=== PATIENT | male | born 1985 | race Two or more races ===

== ENCOUNTER 2021-12-25 09:56 | Outpatient (CLI) | payer OTHER ==
[2021-12-25 10:42] VITALS: BP 118/78
--- NOTE | 2021-12-25 10:43 | SLEEP CARE CONSULTATION ---
Information from patient questionnaire entered by Brock Otero. I have reviewed and concur with the information entered by Brock Otero. This document represents the service I personally performed and the decisions made by me, Liana Mccollum MD, [facility]. History of Present Illness Service Date and Time: 12/25/2021 0956 Reason for Visit: New patient (INITIAL ONSET: 11/16/19, ON CPAP) Additional HPI information: I had the pleasure of seeing Mr. Westfall today regarding obstructive sleep apnea- hypopnea. As you know, he is a 36-year-old gentleman who was diagnosed with the sleep-disordered breathing in [place], [place] around 2018. The sleep study report is unavailable. There is a chart note from 2019 mentioning that he had the study a year ago, but the results were not available and the patient was told to follow up with the private sleep clinic. He recalls being told that he quit breathing 25 times an hour. The patient has a CPAP that he is not using because he ran out of supplies. He cannot remember who was his supplier either. He wore a full face mask. He recalls improvement on the treatment. He did not bring his CPAP device or its memory card. The patient tells me that he normally goes to bed around 10 pm, and it takes him approximately 60 minutes to fall asleep. He can recall waking up on the average of 1 time during the night. He has awakened occasionally because of his own snoring, choking, and having to gasp for air. In the morning he usually gets up out of the bed around 6 a.m. feeling refreshed and rested. However, he has a morning headache when not using his CPAP. During the day he complains of feeling sleepy and fatigued. His score on Houston Sleepiness Scale is 12 out of 24. He never has fallen asleep while driving nor has had any accident due to sleepiness. He usually does not take naps during the day. He denies having impaired concentration during the day. 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 Patient is Single and lives in . Family History Family Hx Sleep Apnea: Mother: Snoring, Sleep apnea - Treated Allergies and Home Medications Drug allergies reviewed: Yes Home medication list reviewed: Yes Review of Systems Cardiovascular: reports: high blood pressure Respiratory: denies: shortness of breath, wheeze, sputum production, chronic cough, other Gastrointestinal: denies: heartburn, difficulty swallowing, nausea, vomitting, diarrhea, abdominal pain, other Urinary: denies: incontinence, frequency, urgency, impotence, other Neurological: reports: headaches Psychiatric: denies: Attention Deficit Hyperactivity, anxiety, depression, mood disorder, claustrophobia, other Ear/Nose/Throat: denies: nasal congestion, sinus problems, nose bleeds, dry mouth/throat, hoarseness, injury to nose, tonsillectomy, wisdom teeth removed, other Endocrine: denies: thyroid disease, history of goiter, sluggishness, too hot or cold, excessive thirst, increased appetite, increased urination, unexplained weakness, other Musculoskeletal: denies: joint pain, neck pain, back pain, joint swelling, muscle pain or cramping, mobility problems, other Immunologic: denies: sneezing, rash, itching, allergies to food or environment, other Physical Exam Vital signs obtained and entered by: HARJEET, [employer] Blood Pressure: 118/78 (left arm ) Cuff size: regular Heart Rate: 89 O2 Saturation: 95 Height: 5 ft 11 in Weight: 238 lb Body Mass Index: 33.2 BMI Classification: Obese Mood/affect: normal HEENT: No craniofacial malformation Nostrils: patent to airflow Turbinates: normal Septum: midline Mouth and throat: narrow oropharynx Soft palate: long Hard palate: normal Uvula: normal Uvula visualization: 25% Mallampati Class III Tongue: normal in size Tonsils: 2+ Chin and jaw: normal size and position Neck: normal w/o lymphadenopathy or thyromegaly Heart: regular rate and rhythm Lungs: clear bilaterally Extremities: no edema or clubbing Neurologic: intact Impression and Plan IMPRESSION: 1. Obstructive Sleep Apnea-Hypopnea Syndrome, as previously diagnosed. The severity is the severity is unknown as we do not have any of the records. Therefore, before restarting him on the CPAP therapy, I will order an in-laboratory polysomnography to establish the diagnosis and its severity. Narrow oropharynx and obesity are common predisposing factors for obstructive sleep apnea-hypopnea syndrome. The enlarged tonsils probably play a role. Untreated obstructive sleep apnea can also cause hypertension. I informed the patient of what the sleep studies involve and after some discussion, he agreed to proceed. Plan: 1. Schedule an in-laboratory polysomnography. 2. Avoid long distance driving or when feeling sleepy. 3. Avoid alcohol, sedative and muscle relaxant around bedtime. 4. Attempt to lose weight. 5. Return for follow up after the sleep study. Follow up with Sleep Care in: 1-2 months Plan: in-lab PSG Visit Type: In Office Time Spent with Patient (minutes): 20 Provider Statement: I spent 100% of the Face to Face Visit with the patient with greater than 50% spent counseling the patient and coordination of care.
== END 2021-12-25 09:57 | disposition home or self-care (01) ==
LOC: SC 09:56
PROVIDERS: ATTEND Internal Medicine Pulmonary Disease
DX: G47.33 Obstructive sleep apnea (adult) (pediatric) (principal); E66.9 Obesity, unspecified; Z68.33 Body mass index [BMI] 33.0-33.9, adult
CPT/HCPCS: 99202; 99212

== ENCOUNTER 2022-01-04 20:40 | Outpatient (CLI) | payer OTHER | END 2022-01-04 20:41 | disposition home or self-care (01) | LOC: SC 20:40 | PROVIDERS: ATTEND Internal Medicine Pulmonary Disease | DX: G47.33 Obstructive sleep apnea (adult) (pediatric) (principal) | CPT/HCPCS: 95810 ==

== ENCOUNTER 2022-01-17 08:27 | Outpatient (CLI) | payer OTHER ==
[2022-01-17 09:08] VITALS: BP 113/80
--- NOTE | 2022-01-17 09:08 | SLEEP CARE CONSULTATION ---
Information from patient questionnaire entered by Palomo Staley MA. I have reviewed and concur with the information entered by Palomo Staley MA. This document represents the service I personally performed and the decisions made by , Pattie Lopez ARNP. History of Present Illness Service Date and Time: 01/17/2022 0827 Initial Mcclellan Sleepiness Scale score: 12 Current Mcclellan Sleepiness Scale score: 8 (01/17/2022) Additional HPI information: AMANDA MACIEL returns for follow up and results of the recently performed polysomnography. I explained the pathophysiology behind obstructive sleep apnea. We then spent quite a bit of time discussing different treatment options. For mild obstructive sleep apnea, surgery and oral appliance are alternatives to nasal CPAP therapy but in moderate or severe cases, nasal CPAP is the most effective and reliable treatment. Because apnea is primarily in supine position, then positional management therapy could be effective. Methods discussed such as positioning with pillows to prevent supine sleep. I reviewed the impact of weight changes on sleep apnea and strongly recommended losing weight. After some discussion, the patient opted to go with the nasal CPAP therapy. Nasal autoCPAP set at 4-15 cmH20 will be ordered with rationale explained. A manual titration study will be ordered if unable to find optimal pressure with office adjustments. I explained how CPAP machine works and what to expect when using the machine. Using CPAP every night in order to get used to it was emphasized. Patient was cautioned about risks of drowsy driving until sleepiness symptoms resolve. Sleep Study - Results Type of Sleep Study: Polysomnography (F/U POLY, 01/04/2022 [facility], [facility]) Polysomnography/Home Sleep Study results: IMPRESSION: The quality of the study is good. The patient had slightly reduced sleep efficiency due to sleep onset insomnia. The sleep architecture was abnormal for sleep fragmentation and reduced amount of time spent in slow wave sleep (N3). Respiratory monitoring showed severe obstructive sleep apnea- hypopnea (AHI = 38.4) associated with frequent arousals, oxyhemoglobin desaturation and moderate hypoxia (melvin oxygen saturation of 78%). The respiratory events occurred independently of sleep stage and body position (supine AHI = 35.6; non-supine = 39.97). Snore was moderate in intensity. There was no significant periodic leg movement of sleep. Cardiac rhythm was normal sinus rhythm without significant arrhythmia. No abnormal behavior (parasomnia) observed during the night. Allergies and Home Medications Home medication list reviewed: Yes (no changes) Review of Systems Review of systems same as previous: Yes (no changes) Physical Exam Vital signs obtained and entered by: CHARLES ESCOBAR Blood Pressure: 113/80 (RESP 20, PULSE 111, LEFT) Heart Rate: 115 O2 Saturation: 99 (PAPER MASK) Height: 5 ft 11 in Weight: 225 lb Body Mass Index: 31.4 BMI Classification: Obese Impression and Plan 1. Obstructive Sleep Apnea-Hypopnea Syndrome, severe, with lowest oxygen saturation of 78%. Obviously this is the cause of the patients symptoms of unrefreshed sleep, and excessive daytime sleepiness. Positive pressure therapy could benefit hypertension. As mentioned above, the patient will be started on nasal autoCPAP therapy with pressure set at 4-15 cmH2O. Compliance guidelines also reviewed. A copy of compliance guidelines will be given for reference at check out. 2. Hypoxemia, moderate, with a melvin oxygen saturation of 78% and 20.5 minutes spent under 90%. His baseline oxygen saturation was normal with an average oxygen saturation of 93%. * Nasal auto CPAP therapy, pressure at 4-15 cm H2O. * Attempt to lose weight. * Avoid alcohol consumption near bedtime. * Avoid supine sleep until using CPAP. * The patient is again cautioned about driving until sleepiness completely resolves. * Return one month after CPAP obtained. I will assess response to therapy and compliance at that time. Counseling Topics: Weight loss health impact Prescriptions: Auto CPAP Visit Type: In Office Time Spent with Patient (minutes): 20 Provider Statement: I spent 100% of the Face to Face Visit with the patient with greater than 50% spent counseling the patient and coordination of care.
== END 2022-01-17 08:28 | disposition home or self-care (01) ==
LOC: SC 08:27
PROVIDERS: ATTEND Nurse Practitioner Family
DX: G47.33 Obstructive sleep apnea (adult) (pediatric) (principal); R09.02 Hypoxemia; E66.9 Obesity, unspecified; Z68.31 Body mass index [BMI] 31.0-31.9, adult
CPT/HCPCS: 99212; 99213